=== PATIENT | female | born 1945 | race Caucasian/White ===

== ENCOUNTER 2023-04-22 11:21 | Inpatient (IN) ==
[2023-04-22] MEDS ORDERED: Lactated Ringers 1000 ml BAG 1,000 ML IV ONE (11:31)
[2023-04-22] MEDS ORDERED: Ondansetron 4 mg VIAL 2 MG/ML 2 ml VIAL IV ONE (11:31)
[2023-04-22 12:13] LABS: ABS Lymphocytes 2.4 10^3/uL (1.0-4.8); ABS Monocytes 0.6 10^3/uL (0.0-0.9); ABS Neutrophils 5.7 10^3/uL (1.5-7.6); ABS Nucleated RBC 0.01 10^3/ul; Eosinophil % 0.4 %; Hematocrit 37.4 % (35-45); Hemoglobin 12.7 g/dL (11.5-14.3); Lymphocyte % 27.3 %; Mean Corpuscular Hemoglobin 27.3 pg (27-33); Mean Corpuscular Hgb Conc 33.9 g/dL (31-36); Mean Corpuscular Volume 80.7 fL (80-97); Mean Platelet Volume 8.4 fL (7.5-11.2); Nucleated Red Blood Cells % 0.1 /100 WBC (0.0-0.4); Platelet Count 261 10^3/uL (150-450); Red Blood Count 4.64 10^6/uL (3.63-4.92); Red Cell Distribution Width 13.7 % (12-17); White Blood Count 8.7 10^3/uL (3.8-11.8)
[2023-04-22 12:32] LABS: Albumin 4.3 g/dL (3.2-5.2); Albumin/Globulin Ratio 1.7 (1-3); Calcium 9.3 mg/dL (8.6-10.3); Creatinine, Serum 0.79 mg/dL (0.51-0.95); Globulin 2.6 g/dL (2-4); Potassium 3.8 mmol/L (3.5-5.0); Total Bilirubin 0.5 mg/dL (0.2-1.0); Total Protein 6.9 g/dL (6.4-8.9); eGFR CKD-EPI 77.5 (>60)
[2023-04-22] MEDS ORDERED: HYDROmorphone 0.5 MG/0.5 ML SYRINGE IV SLOW PU PRN ×2 (15:43→15:50)
[2023-04-22] MEDS ORDERED: Morphine 2 MG/ML SYRINGE IV PRN (15:51)
[2023-04-22] MEDS ORDERED: Albuterol HFA INHALER 8 gm MDI INH PRN (15:53)
[2023-04-22 16:24] LABS: INR 1.08 (0.88-1.18)
[2023-04-22] MEDS: Acetaminophen IV 1 GM/100ML 1,000 MG/100 ML BAG IV SCH (17:34)
[2023-04-22] MEDS ORDERED: Enoxaparin 40 MG/0.4 ML SYR SUBCUT SCH (18:00)
[2023-04-22] MEDS: Senna TAB 8.6 mg TAB PO SCH (20:51)
[2023-04-22] MEDS ORDERED: Magnesium Hydroxide LIQ 30 ML UDC PO SCH (21:00)
[2023-04-22] MEDS ORDERED: Senna TAB 8.6 mg TAB PO SCH (21:00)
[2023-04-22] MEDS ORDERED: Heparin 5000 UNITS/ML 1 mL VIAL SUBCUT SCH ×2 (22:00)
[2023-04-22] MEDS: TIROSINT PO SCH ×2 (22:31→23:01)
[2023-04-22] MEDS: HYDROmorphone 0.5 MG/0.5 ML SYRINGE IV SLOW PU PRN (22:41)
[2023-04-23] MEDS: HYDROmorphone 0.5 MG/0.5 ML SYRINGE IV SLOW PU PRN (02:39)
[2023-04-23] MEDS: Acetaminophen IV 1 GM/100ML 1,000 MG/100 ML BAG IV SCH ×4 (02:40→23:56)
[2023-04-23] MEDS ORDERED: Lactated Ringers 1000 ml BAG 1,000 ML IV ONE (06:00)
[2023-04-23 07:31] LABS: ABS Lymphocytes 2.5 10^3/uL (1.0-4.8); ABS Monocytes 0.9 10^3/uL (0.0-0.9); ABS Neutrophils 6.7 10^3/uL (1.5-7.6); Eosinophil % 0.2 %; Hematocrit 35.2 % (35-45); Hemoglobin 11.8 g/dL (11.5-14.3); Lymphocyte % 24.7 %; Mean Corpuscular Hemoglobin 27.8 pg (27-33); Mean Corpuscular Hgb Conc 33.5 g/dL (31-36); Mean Platelet Volume 7.8 fL (7.5-11.2); Platelet Count 239 10^3/uL (150-450); Red Blood Count 4.24 10^6/uL (3.63-4.92); Red Cell Distribution Width 13.6 % (12-17); White Blood Count 10.1 10^3/uL (3.8-11.8)
[2023-04-23 07:53] LABS: Albumin 3.9 g/dL (3.2-5.2); Calcium 8.7 mg/dL (8.6-10.3); Magnesium 2.4 mg/dL (1.9-2.7); Potassium 3.8 mmol/L (3.5-5.0); Total Bilirubin 0.6 mg/dL (0.2-1.0)
[2023-04-23 07:59] LABS: Albumin/Globulin Ratio 1.7 (1-3); Creatinine, Serum 0.78 mg/dL (0.51-0.95); Globulin 2.3 g/dL (2-4); Total Protein 6.2 g/dL (6.4-8.9); eGFR CKD-EPI 78.7 (>60)
[2023-04-23] MEDS ORDERED: Dextran 70/Hypromellose Tears Eye Drops 15 ml BTL (for Artificials Tears) BOTH EYES PRN (08:31)
[2023-04-23] MEDS ORDERED: NF:Olopatadine 0.2% (NF) 1 DROP BTL BOTH EYES SCH (09:00)
[2023-04-23] MEDS ORDERED: Polyethylene Glycol 3350 17 GM PACKET PO SCH (09:00)
[2023-04-23] MEDS: Cholecalciferol (VIT D3) 1,000 unit TAB PO SCH (09:34)
[2023-04-23] MEDS: Magnesium Hydroxide LIQ 30 ML UDC PO SCH ×2 (09:34→18:01)
[2023-04-23] MEDS: Polyethylene Glycol 3350 17 GM PACKET PO SCH (09:34)
[2023-04-23] MEDS: Senna TAB 8.6 mg TAB PO SCH (19:55)
[2023-04-23] MEDS: Enoxaparin 40 MG/0.4 ML SYR SUBCUT SCH (19:56)
[2023-04-23] MEDS: TIROSINT PO SCH (21:36)
[2023-04-23] MEDS: Morphine 2 MG/ML SYRINGE IV PRN (21:39)
[2023-04-24] MEDS: Morphine 2 MG/ML SYRINGE IV PRN (07:07)
[2023-04-24] MEDS: Acetaminophen IV 1 GM/100ML 1,000 MG/100 ML BAG IV SCH ×2 (08:16→16:54)
[2023-04-24] MEDS: Magnesium Hydroxide LIQ 30 ML UDC PO SCH ×2 (08:18→17:39)
[2023-04-24] MEDS: Polyethylene Glycol 3350 17 GM PACKET PO SCH (08:19)
[2023-04-24] MEDS: Cholecalciferol (VIT D3) 1,000 unit TAB PO SCH (08:19)
[2023-04-24] MEDS ORDERED: Morphine 2 MG/ML SYRINGE IV PRN (09:27)
[2023-04-24] MEDS: Senna TAB 8.6 mg TAB PO SCH (21:02)
[2023-04-24] MEDS: TIROSINT PO SCH (21:04)
[2023-04-24] MEDS: Enoxaparin 40 MG/0.4 ML SYR SUBCUT SCH (21:05)
[2023-04-24] MEDS ORDERED: TIROSINT PO SCH (22:00)
[2023-04-25] MEDS: Acetaminophen IV 1 GM/100ML 1,000 MG/100 ML BAG IV SCH ×2 (00:22→08:41)
[2023-04-25] MEDS: Morphine 2 MG/ML SYRINGE IV PRN (03:01)
[2023-04-25 05:50] LABS: ABS Eosinophils 0.2 10^3/uL (0.0-0.5); ABS Monocytes 0.6 10^3/uL (0.0-0.9); ABS Neutrophils 5.3 10^3/uL (1.5-7.6); ABS Nucleated RBC 0.01 10^3/ul; Hematocrit 32.6 % (35-45); Hemoglobin 11.1 g/dL (11.5-14.3); Lymphocyte % 24.4 %; Mean Corpuscular Hemoglobin 27.8 pg (27-33); Mean Corpuscular Hgb Conc 34.1 g/dL (31-36); Mean Corpuscular Volume 81.6 fL (80-97); Mean Platelet Volume 8.3 fL (7.5-11.2); Nucleated Red Blood Cells % 0.2 /100 WBC (0.0-0.4); Platelet Count 207 10^3/uL (150-450); Red Blood Count 3.99 10^6/uL (3.63-4.92); Red Cell Distribution Width 13.6 % (12-17); White Blood Count 8.1 10^3/uL (3.8-11.8)
[2023-04-25 06:05] LABS: Calcium 8.7 mg/dL (8.6-10.3); Creatinine, Serum 0.65 mg/dL (0.51-0.95); Magnesium 2.3 mg/dL (1.9-2.7); eGFR CKD-EPI 91.2 (>60)
[2023-04-25] MEDS: Cholecalciferol (VIT D3) 1,000 unit TAB PO SCH (08:44)
[2023-04-25] MEDS: Magnesium Hydroxide LIQ 30 ML UDC PO SCH ×2 (08:45→18:38)
[2023-04-25] MEDS: Polyethylene Glycol 3350 17 GM PACKET PO SCH (08:45)
[2023-04-25] MEDS ORDERED: Naloxone 0.4 mg VIAL 0.4 mg/ml 1 ml VIAL IV PRN (10:45)
[2023-04-25] MEDS ORDERED: Ondansetron 4 mg VIAL 2 MG/ML 2 ml VIAL IV PRN (10:45)
[2023-04-25] MEDS ORDERED: fentaNYL 100 mcg/2 ml 50 MCG/ML VIAL IV PRN (10:45)
[2023-04-25] MEDS ORDERED: HYDROcodone/ACETAMIN 5/325 mg TAB PO PRN (10:45)
[2023-04-25] MEDS ORDERED: Metoclopramide 5 MG/ML VIAL (10 mg) IV PRN (10:45)
[2023-04-25] MEDS ORDERED: Buffered Lidocaine 1% SYRIN 1 ml INTRADERM ONE (10:45)
[2023-04-25] MEDS ORDERED: Lactated Ringers 1000 ml BAG 1,000 ML IV SCH (11:00)
[2023-04-25] MEDS ORDERED: Heparin 5000 UNITS/ML 1 mL VIAL SUBCUT ONE (21:00)
[2023-04-25] MEDS: TIROSINT PO SCH (21:39)
[2023-04-25] MEDS: Senna TAB 8.6 mg TAB PO SCH (21:40)
[2023-04-26] MEDS ORDERED: Clindamycin 900 MG/50 **NS BAG 900 MG/50 ML BAG ONE (06:48)
[2023-04-26] MEDS ORDERED: fentaNYL 100 mcg/2 ml 50 MCG/ML VIAL ONE ×3 (07:14→10:01)
[2023-04-26] MEDS ORDERED: Dexamethasone IV 4 MG/ML VIAL 1 ml VIAL ONE (07:14)
[2023-04-26] MEDS ORDERED: ROPIVACAINE 5 MG/ML 30 ML BTL (0.5%) ONE (07:14)
[2023-04-26] MEDS ORDERED: Ondansetron 4 mg VIAL 2 MG/ML 2 ml VIAL ONE (07:16)
[2023-04-26] MEDS ORDERED: Midazolam 2 mg/2 ml VIAL 1 mg/ml 2 ml VIAL (2 mg) ONE (07:16)
[2023-04-26] MEDS ORDERED: Lidocaine 2% PF 5 ML VIAL ONE (07:16)
[2023-04-26] MEDS ORDERED: Propofol 10 MG/ML 20 ML BTL ONE (07:16)
[2023-04-26] MEDS ORDERED: Phenylephrine IV 10 MG/ML 1 ml VIAL ONE (07:16)
[2023-04-26] MEDS ORDERED: Rocuronium 50 mg VIAL 10 mg/ml 5 ml VIAL (50 mg) ONE ×2 (07:23→09:13)
[2023-04-26] MEDS ORDERED: Vancomycin 1,000 MG VIAL ONE (07:30)
[2023-04-26] MEDS ORDERED: Tranexamic Acid 1,000 MG/10 ML SDV ONE (08:50)
[2023-04-26] MEDS: Cholecalciferol (VIT D3) 1,000 unit TAB PO SCH (09:20)
[2023-04-26] MEDS: Magnesium Hydroxide LIQ 30 ML UDC PO SCH ×2 (09:20→18:33)
[2023-04-26] MEDS: Polyethylene Glycol 3350 17 GM PACKET PO SCH (09:20)
[2023-04-26] MEDS ORDERED: ceFAZolin 1 GM X 3 DOSES POST-OP Q8H (AddVan) IVPB SCH (16:00)
[2023-04-26] MEDS: Senna TAB 8.6 mg TAB PO SCH ×2 (21:15→21:16)
[2023-04-26] MEDS: TIROSINT PO SCH (21:16)
[2023-04-26] MEDS: Morphine 2 MG/ML SYRINGE IV PRN (21:17)
[2023-04-26] MEDS ORDERED: Morphine 2 MG/ML SYRINGE IV ONE (23:07)
[2023-04-26] MEDS ORDERED: Lidocaine 4% TOPICAL 50 ML TOP.SOLN TOPICAL ONE (23:08)
[2023-04-26] MEDS ORDERED: Lidocaine PATCH 4% TOPICAL PRN (23:28)
[2023-04-27] MEDS: ceFAZolin 1 GM X 3 DOSES POST-OP Q8H (AddVan) IVPB SCH ×2 (03:52→09:55)
[2023-04-27] MEDS ORDERED: HYDROmorphone 0.5 MG/0.5 ML SYRINGE IV SLOW PU ONE (06:00)
[2023-04-27 06:10] LABS: Hematocrit 30.2 % (35-45); Hemoglobin 10.3 g/dL (11.5-14.3); Mean Corpuscular Hemoglobin 28.1 pg (27-33); Mean Corpuscular Hgb Conc 34.1 g/dL (31-36); Mean Corpuscular Volume 82.4 fL (80-97); Mean Platelet Volume 8.3 fL (7.5-11.2); Platelet Count 255 10^3/uL (150-450); Red Blood Count 3.67 10^6/uL (3.63-4.92); Red Cell Distribution Width 13.6 % (12-17); White Blood Count 10.8 10^3/uL (3.8-11.8)
[2023-04-27 06:32] LABS: Albumin 3.6 g/dL (3.2-5.2); Albumin/Globulin Ratio 1.4 (1-3); Calcium 8.7 mg/dL (8.6-10.3); Creatinine, Serum 0.68 mg/dL (0.51-0.95); Globulin 2.5 g/dL (2-4); Potassium 4.2 mmol/L (3.5-5.0); Total Bilirubin 0.5 mg/dL (0.2-1.0); Total Protein 6.1 g/dL (6.4-8.9); eGFR CKD-EPI 90.2 (>60)
[2023-04-27] MEDS ORDERED: HYDROmorphone 0.5 MG/0.5 ML SYRINGE IV SLOW PU PRN ×3 (07:17→11:06)
[2023-04-27] MEDS ORDERED: HYDROmorphone 1 MG/1 ML SYRINGE IV SLOW PU PRN (07:18)
[2023-04-27] MEDS: Cholecalciferol (VIT D3) 1,000 unit TAB PO SCH (08:58)
[2023-04-27 08:59] LABS: C Reactive Protein 21.62 mg/L (<8.01)
[2023-04-27] MEDS: Polyethylene Glycol 3350 17 GM PACKET PO SCH (08:59)
[2023-04-27] MEDS: Magnesium Hydroxide LIQ 30 ML UDC PO SCH ×2 (09:00→16:16)
[2023-04-27] MEDS: Enoxaparin 40 MG/0.4 ML SYR SUBCUT SCH (16:17)
[2023-04-27] MEDS: Senna TAB 8.6 mg TAB PO SCH (20:32)
[2023-04-27] MEDS: TIROSINT PO SCH (22:16)
[2023-04-28] MEDS: Cholecalciferol (VIT D3) 1,000 unit TAB PO SCH (08:11)
[2023-04-28] MEDS: Magnesium Hydroxide LIQ 30 ML UDC PO SCH (08:13)
[2023-04-28] MEDS: Polyethylene Glycol 3350 17 GM PACKET PO SCH (10:20)
[2023-04-28 13:55] VITALS: BP 146/64
[2023-04-28] MEDS: Enoxaparin 40 MG/0.4 ML SYR SUBCUT SCH (16:45)
== END 2023-04-28 17:57 | disposition home or self-care (01) | DRG 483 ==
LOC: ED 11:21 → EDHOLD 11:21 → SSU 15:37 → SUATTDRO 04-23 14:25
PROVIDERS: ADMIT Internal Medicine; ATTEND Internal Medicine